=== PATIENT | male | born 1960 ===

== ENCOUNTER 2024-11-14 09:06 | Outpatient (AMB) | payer MEDICARE, OTHER, SELFPAY ==
--- NOTE | 2024-11-14 09:19 | A.SPINEOV_ITS ---
Vital Signs 11/14/24 09:20 Height 5 ft 6 in Weight 195 lb BMI 31.5 Intake Visit Reasons: nerve impingement Intake Note: Mr. Moyer is here today c/o left sided low back pain. MRI done at [facility]. Group Managing Director Required: No Allergies No Known Allergies Allergy (Verified 11/14/24 09:20) Physical Exam Vital Signs: BMI result Body Mass Index 31.5 Assessment & Plan Assessment & Plan (1) Back pain: Code(s): M54.9 - Dorsalgia, unspecified Category: Medical Plan Dear Indu, Thank you for referring Mr Moyer to our office today. He is a 64-year-old Urdu gentleman who presents for evaluation of a left-sided low back pain. It started right before he was going to a trip to [facility] in August. It was quite intense at that time. He had a hard time getting off the plane, was unable to get out of bed. He ultimately ended up seeing a chiropractor which helped significantly. He was taking pain medication in [facility] as well but it did not help either. He does not have any pain radiating down the legs at that time. He currently feels okay and really has just some mild discomfort. He does not even take [id number] medications at this point, it is really very mild. He comes in today for evaluation with MRI showing some degenerative disc disease and facet arthropathy as well as bulging disc on the left at L4-5. PMH: He is a diabetic, his A1c was 7.5, high cholesterol, anterior cervical fusion as well as what sounds like maybe a posterior cervical laminotomy or laminectomy done at [facility] about 8 years ago, appendectomy. Social hx: Does not smoke, does drink 1 glass of wine a day, no recreational drugs Medications: Metformin, glipizide, Jardiance, lisinopril, atorvastatin Allergies: None Physical exam: Awake alert oriented no acute distress, strength, gait, reflexes all normal Imaging review: Lumbar MRI done at [facility] shows he has overall relatively decent quality of his discs with normal alignment. On the left at L4-5 there is a component of an intraforaminal disc bulge. He has facet arthropathy at L3-4 and L4-5. Impression: 64-year-old male presents for follow-up after having a severe flare-up of back pain when he went to [facility] in August. He is currently feeling well and otherwise doing activities as tolerated, is no longer on Tylenol or Motrin. He has a number of changes in his lumbar spine MRI which could explain some of the reason he had back pain. He does have a disc herniation on the left at L4-5 into the intraforaminal space, but he does not have any radicular symptoms. He has facet arthropathy at L3-4 and L4-5. I think this probably is the biggest thing that I see that is contributing to his symptoms. He was an employee of [employer] for years and worked most of his life standing on his feet so I suspect to some degree this is just from a very physical job all those years. He could consider facet blocks if he has a recurrence of the pain or this turns into a chronic back pain situation. Currently though he is feeling well so I have no restrictions for him and I showed him his MRI and educated him on what to look out for. He will call me down the road if something changes. Thank you for allowing us to care for your patient. The total time spent with this visit with this patient was 45 minutes reviewing history, physical exam, lumbar imaging review, and implementation of treatment plan or further diagnostic testing Osmin Kelley MD,PhD [facility] Coding Level of Care Code New Pt Level 4 (60609) Diagnoses Back pain M54.9
[2024-11-14 09:20] VITALS: BMI 31.5
--- OUTSIDE RECORDS SUMMARY | 2024-11-14 09:46 | XMS_ITS | Clinical Summary ---
Author Organization [address] Address [address] [place] [address] Phone Care Team Providers Care Onsite Health Coach Name Role Phone Landon Sullivan DO Primary Care Provider [phone] Social History Tobacco Use Types Packs/Day Years Used Date Smoking Tobacco: Never Assessed Sex and Gender Information Value Date Recorded Sex Assigned at Not on file Legal Sex Male 5:36 AM EST Gender Identity Not on file Sexual Orientation Not on file Plan of Treatment Health Maintenance Due Date Last Done Comments Diabetes: Annual Foot Exam 09/11/1969 Diabetes: Annual Retina Eye Exam 09/11/1969 DTaP,Tdap,and Td Vaccines (1 - Tdap) 09/11/1978 Pneumococcal Vaccine: 50+ Years (1 of 2 - PCV) 09/11/1978 Zoster Vaccines (1 of 2) 09/11/2009 Abdominal Aortic Aneurysm (AAA) Screen 01/29/2022 Colorectal Cancer Screening: Colonoscopy 01/29/2022 Hepatitis C Screening 01/29/2022 Medicare Annual Wellness Visit 01/29/2022 Social Influencers of Health Screening 01/29/2022 Depression Screening 02/27/2024 Falls Risk Assessment 09/11/2024 COVID-19 Vaccine ( season) 2024 03/12/2021, 07/12/2020, 06/21/2020 Influenza Vaccine (#1) 2024 , 12/08/2022, 12/15/2021, Additional history exists Diabetes: Annual Urine Albumin-Creatinine Ratio (uACR) 01/28/2025 01/29/2024 Diabetes: Blood Sugar Control Test (HGBA1C) 04/25/2025 10/23/2024, 05/26/2024, 01/29/2024 Diabetes: Annual GFR (Glomerular Filtration Rate) 10/23/2025 10/23/2024, 05/26/2024, 01/29/2024 Hypertension/CHF/CAD Annual BMP Blood Test 10/23/2025 10/23/2024, 05/26/2024, 01/29/2024 Cholesterol Screening (Lipid Panel) 10/23/2029 10/23/2024, 05/26/2024, 01/29/2024 RSV Immunization Adult Patients (1 - 1-dose 75+ series) 09/11/2034 HIB Vaccines Aged Out No longer eligi ble based on patient's age to complete this topic HPV Vaccines Aged Out No longer eligi ble based on patient's age to complete this topic Hepatitis A Vaccines Aged Out No long er eligible based on patient's age to complete this topic Hepatitis B Vaccines Aged Out No long er eligible based on patient's age to complete this topic IPV Vaccines Aged Out No longer eligi ble based on patient's age to complete this topic MMR Vaccines Aged Out No longer eligi ble based on patient's age to complete this topic Meningococcal ACWY Vaccine Aged Out N o longer eligible based on patient's age to complete this topic Meningococcal B Vaccine Aged Out No l onger eligible based on patient's age to complete this topic RSV Immunization Patients Under 20 months Aged Out No longer eligible based on patient's age to complete this topic Varicella Vaccines Aged Out No longer eligible based on patient's age to complete this topic Procedures Procedure Name Priority Date/Time Associated Diagnosis Comments HEMOGLOBIN A1C Routine 10/23/2024 1:30 PM EDT Essential hypertension, malignant Hyperlipemia Diabetes mellitus (CMS/HCC V24, CMS/HCC V28) COMPREHENSIVE METABOLIC PANEL Routine 10/23/2024 1:30 PM EDT Essential hypertension, malignant Hyperlipemia Diabetes mellitus (CMS/HCC V24, CMS/HCC V28) CREATINE KINASE Routine 10/23/2024 1:30 PM EDT Essential hypertension, malignant Hyperlipemia Diabetes mellitus (CMS/HCC V24, CMS/HCC V28) LIPID PANEL WITH REFLEX TO DIRECT LDL Routine 10/23/2024 1:30 PM EDT Essential hypertension, malignant Hyperlipemia Diabetes mellitus (CMS/HCC V24, CMS/HCC V28) MICROALBUMIN CREATININE URINE RATIO Routine 01/29/2024 8:37 AM EST Hyperlipemia Diabetes mellitus ([facility] V24, [facility] V28) Essential hypertension, malignant Routine general medical examination at a health care facility from Last 3 Months or Most Recently Relevant to Health Maintenance Results * (ABNORMAL) Lipid panel with reflex to direct LDL (10/23/2024 1:30 PM EDT) Cholesterol 164 0 - 200 mg/dL LAB CHEMISTRY METHOD 10/23/2024 4:47 PM EDT [facility] Triglycerides 254(H) 0 - 150 mg/dL LAB CHEMISTRY METHOD 10/23/2024 4:47 PM EDT [facility] HDL 47 >=40 mg/dL LAB CHEMISTRY METHOD 10/23/2024 4:47 PM EDT [facility] LDL Calculated 66 0 - 100 mg/dL LAB CHEMISTRY METHOD 10/23/2024 4:47 PM EDT [facility] Comment:Estimated LDL Calcul ated using equation: Total cholesterol - HDL cholesterol - (Triglycerides/5) VLDL Cholesterol Nima 50.8 mg/dL LAB CHEMISTRY METHOD 10/23/2024 4:47 PM EDT [facility] Non HDL Chol. (LDL+VLDL) 117 <145 mg/dL LAB CHEMISTRY METHOD 10/23/2024 4:47 PM EDT [facility] Chol/HDL Ratio 3.5 0.0 - 4.4 LAB CHEMISTRY METHOD 10/23/2024 4:47 PM EDT [facility] Blood Venous blood specimen / Unknown Venipuncture / Unknown 10/23/2024 1:30 PM EDT 10/23/2024 1:30 PM EDT us Indu Ray NP LAB BLOOD ORDERABLES Fi nal Result [facility] [address] [place] [address], [place] [phone] * (ABNORMAL) Hemoglobin A1c (10/23/2024 1:30 PM EDT) [facility] Hemoglobin A1C 7.5(H) <6.5 % LAB CHEMISTRY METHOD 10/23/2024 6:01 PM EDT [facility] Mean Bld Glu Estim. 169 mg/dL LAB CHEMISTRY METHOD 10/23/2024 6:01 PM EDT [facility] Blood Venous blood specimen / Unknown Venipuncture / Unknown 10/23/2024 1:30 PM EDT 10/23/2024 1:30 PM EDT us Indu Ray NP LAB BLOOD ORDERABLES Fi nal Result Performing Organization Address City/[facility]/ZIP Co de Phone Number [facility] [address] [place] [address], [place] [phone] * Creatine kinase (10/23/2024 1:30 PM EDT) [facility] Total CK 166 22 - 269 unit/L LAB CHEMISTRY METHOD 10/23/2024 4:22 PM EDT [facility] Blood Venous blood specimen / Unknown Venipuncture / Unknown 10/23/2024 1:30 PM EDT 10/23/2024 1:30 PM EDT us Indu Ray NP LAB BLOOD ORDERABLES Fi nal Result [facility] [address] [place] [address], [place] [phone] * (ABNORMAL) Comprehensive metabolic panel (10/23/2024 1:30 PM EDT) [facility] Sodium 136 133 - 145 mmol/L LAB CHEMISTRY METHOD 10/23/2024 4:31 PM EDT [facility] Potassium 4.1 3.5 - 5.5 mmol/L LAB CHEMISTRY METHOD 10/23/2024 4:31 PM [facility] Chloride 105 96 - 110 mmol/L LAB CHEMISTRY METHOD 10/23/2024 4:31 PM [facility] CO2 26 21 - 32 mmol/L LAB CHEMISTRY METHOD 10/23/2024 4:31 PM [facility] Anion Gap 5 3 - 11 LAB CHEMISTRY METHOD 10/23/2024 4:31 PM [facility] Glucose 166(H) 70 - 100 mg/dL LAB CHEMISTRY METHOD 10/23/2024 4:31 PM [facility] BUN 21 5 - 25 mg/dL LAB CHEMISTRY METHOD 10/23/2024 4:31 PM [facility] Creatinine 0.80 0.70 - 1.30 mg/dL LAB CHEMISTRY METHOD 10/23/2024 4:31 PM [facility] eGFR 98 >=60 mL/min/1. 73m2 LAB CHEMISTRY METHOD 10/23/2024 4:31 PM [facility] Comment:Calculation based on the Chronic Kidney Disease Epidemiology Collaboration (CKD-EPI) equation refit without adjustment for race. BUN/Creatinine Ratio 26.3 LAB CHEMISTRY METHOD 10/23/2024 4:31 PM [facility] Calcium 9.0 8.5 - 10.5 mg/dL LAB CHEMISTRY METHOD 10/23/2024 4:31 PM [facility] AST (SGOT) 11 10 - 42 unit/L LAB CHEMISTRY METHOD 10/23/2024 4:31 PM [facility] ALT (SGPT) 30 10 - 60 unit/L LAB CHEMISTRY METHOD 10/23/2024 4:31 PM [facility] Alkaline Phosphatase 43 42 - 121 unit/L LAB CHEMISTRY METHOD 10/23/2024 4:31 PM [facility] Total Protein 6.9 6.0 - 8.0 g/dL LAB CHEMISTRY METHOD 10/23/2024 4:31 PM EDT [facility] Albumin 4.3 3.2 - 5.0 g/dL LAB CHEMISTRY METHOD 10/23/2024 4:31 PM EDT [facility] Total Bilirubin 0.9 0.0 - 1.4 mg/dL LAB CHEMISTRY METHOD 10/23/2024 4:31 PM EDT [facility] Blood Venous blood specimen / Unknown Venipuncture / Unknown 10/23/2024 1:30 PM EDT 10/23/2024 1:30 PM EDT Indu Ray NP LAB BLOOD ORDERABLES Fi nal Result Performing Organization Address [facility]/ZIP Co de Phone Number [facility] [address] [place] [address], * (ABNORMAL) Microalbumin creatinine urine ratio (01/29/2024 8:37 AM EST) Creatinine, Urine 50.0 mg/dL LAB CHEMISTRY METHOD 01/29/2024 12:22 PM EST [facility] Microalb, Ur 32.6(H) 0.0 - 29.0 mg/L LAB CHEMISTRY METHOD 01/29/2024 12:22 PM EST [facility] Microalb/Crea t Ratio 65(H) <30 mg/g creat LAB CHEMISTRY METHOD 01/29/2024 12:22 PM EST [facility] Urine Urine specimen obtained by clean catch procedure / Unknown Non-blood Collection / Unknown 01/29/2024 8:37 AM EST 01/29/2024 8:37 AM EST us Indu Ray NP LAB URINE ORDERABLES Fi nal Result Performing Organization Address City/[facility]/ZIP Co de Phone Number [facility] [address] [place] [address], from Last 3 Months or Most Recently Relevant to Health Maintenance Insurance [facility] MEDICARE Advance Directives Documents on File Type Date Recorded Patient Artificial Plastic Eye Maker Expl anation Health Care Decision (hx) 07/03/2017 TRACI WALLACE DIRECTIVE Care Teams Onsite Health Coach Relationship Specialty Start Date End Date Landon Sullivan DO [address] [place] [phone] PCP - General Internal Medicine 01/29/24
== END 2024-11-14 09:52 | disposition home or self-care (01) ==
PROVIDERS: PCP Internal Medicine; Referring Provider Internal Medicine; Visit Provider Physician Assistant
DX: M54.9 Dorsalgia, unspecified (principal)
CPT/HCPCS: 99204

== ENCOUNTER → 2024-11-14 09:06 | Outpatient (BNVA) | payer MEDICARE, SELFPAY | PROVIDERS: PCP Internal Medicine; Referring Provider Internal Medicine; Visit Provider Physician Assistant | DX: M54.9 Dorsalgia, unspecified (principal) | CPT/HCPCS: 99202 ==